=== PATIENT | female | born 1975 | race Caucasian/White ===

== ENCOUNTER 2017-12-22 09:57 | Inpatient (IN) | payer MEDICAID ==
[~2017-12-22] VITALS: Ht 157.5 cm; Wt 63.5 kg
[2017-12-22] MEDS ORDERED: HYD25 PO (10:18)
[2017-12-22] MEDS ORDERED: FLUT16H NASAL (10:18)
[2017-12-22] MEDS ORDERED: FOLI1 PO (10:18)
[2017-12-22] MEDS ORDERED: ALBU8HFA IH (10:18)
[2017-12-22] MEDS ORDERED: LORA10TA7 PO (10:18)
[2017-12-22] MEDS ORDERED: IBUP-2070 PO (10:18)
[2017-12-22] MEDS ORDERED: NITR100C PO (10:18)
[2017-12-22 10:31] LABS: AMPHET/METH SCREEN,URINE NEGATIVE (NEGATIVE); BARBITURATE SCREEN, URINE NEGATIVE (NEGATIVE); BENZODIAZEPINES SCREEN,URINE NEGATIVE (NEGATIVE); CANNABINOID SCREEN,URINE NEGATIVE (NEGATIVE); COCAINE SCREEN,URINE NEGATIVE (NEGATIVE); METHADONE SCREEN, URINE NEGATIVE (NEGATIVE); OPIATE SCREEN,URINE NEGATIVE (NEGATIVE)
[2017-12-22 10:34] LABS: PHENCYCLIDINE SCREEN,URINE NEGATIVE (NEGATIVE)
[2017-12-22 10:39] LABS: BASOPHILS % (AUTO) 1.5 % (0.0-2.0); EOSINOPHILS % (AUTO) 3.1 % (1.0-6.0); HEMATOCRIT 36.2 % (36-46); HEMOGLOBIN 12.5 g/dL (12.0-16.0); LYMPHOCYTES # (AUTO) 1.6 K/uL (1.0-4.8); LYMPHOCYTES % (AUTO) 27.7 % (22.0-44.0); MEAN CORPUSCULAR HEMOGLOBIN 30.9 pg (26.0-34.0); MEAN CORPUSCULAR HGB CONC 34.6 G/dL (31.0-37.0); MEAN CORPUSCULAR VOLUME 89 fL (80-100); MONOCYTES # (AUTO) 0.4 K/uL (0.1-1.0); MONOCYTES % (AUTO) 6.8 % (2.0-9.0); NEUTROPHILS # (AUTO) 3.5 K/uL (1.8-7.7); NEUTROPHILS % (AUTO) 60.9 % (40.0-70.0); PLATELET COUNT (AUTO) 286 K/uL (150-450); RED BLOOD CELL COUNT(AUTO) 4.06 MIL/uL (4.00-5.20); RED CELL DISTRIBUTION WIDTH 13.9 % (11.5-14.5)
[2017-12-22 10:46] LABS: ANION GAP 5 mmol/L (8-16); CALCIUM, TOTAL 8.4 mg/dL (8.8-10.5); CARBON DIOXIDE 29 mmol/L (22-29); CHLORIDE 103 mmol/L (98-107); CREATININE 0.98 mg/dL (0.60-1.30); GLOMERULAR FILTR. RATE CALC > 60 mL/min (>60); GLUCOSE,RANDOM 97 mg/dL (70-110); SODIUM SERUM 137 mmol/L (136-145); UREA NITROGEN, BLOOD 14 mg/dL (7-18)
[2017-12-22 10:52] LABS: ALANINE AMINOTRANSFERASE 32 U/L (12-78); ALBUMIN 3.5 g/dL (3.4-5.0); ALKALINE PHOSPHATASE 80 U/L (46-116); ASPARTATE AMINOTRANSFERASE 23 U/L (15-37); BILIRUBIN,TOTAL 0.3 mg/dL (0.1-1.0); TOTAL PROTEIN, SERUM 7.2 g/dL (6.4-8.2)
[2017-12-22 11:38] LABS: HCG,QUANTITATIVE < 1 mIU/mL (0-6)
[2017-12-22] MEDS ORDERED: LORazepam 1 MG TABLET PO ONE (11:45)
[2017-12-22] MEDS ORDERED: ZOLPIDEM TARTRATE 10 MG TABLET PO PRN (12:00)
[2017-12-22] MEDS ORDERED: HALOPERIDOL 5 MG TABLET PO PRN (12:00)
[2017-12-22 15:21] LABS: APPEARANCE,URINE CLOUDY (CLEAR); BILIRUBIN,URINE NEGATIVE (NEGATIVE); GLUCOSE, URINE (UA) NEGATIVE (NEGATIVE); KETONES,URINE NEGATIVE (NEGATIVE); LEUKOCYTE ESTERASE ,URINE TRACE (NEGATIVE); OCCULT BLOOD,URINE NEGATIVE (NEGATIVE); PH,URINE 6.5 (5.0-8.0); PROTEIN,URINE TRACE (NEGATIVE); UROBILINOGEN,URINE 0.2 mg/dL (<=1.0)
[2017-12-22 16:06] LABS: NITRATE,URINE POSITIVE (NEGATIVE)
[2017-12-22 16:07] LABS: BACTERIA,URINE Many /HPF (None Seen); RBC,URINE 0-2 /HPF (0-2); SQUAMOUS EPITHELIAL CELL,UR Many /LPF (None Seen)
[2017-12-22 17:50] VITALS: BP 132/85
[2017-12-22] MEDS: LORazepam 2 MG TABLET PO PRN (18:58)
[2017-12-22] MEDS ORDERED: PETROLATUM,WHITE 71 GM JELLY TP PRN (19:15)
[2017-12-22] MEDS ORDERED: MAGNESIUM HYDROXIDE SUSPENSION 30 ML UDCUP PO PRN (19:15)
[2017-12-22] MEDS ORDERED: CloNIDine HCL 0.1 MG TABLET PO PRN (19:15)
[2017-12-22] MEDS ORDERED: MAG HYDROX/AL HYDROX/SIMETH ES 30 ML SUSPENSION UDCUP PO PRN (19:15)
[2017-12-22] MEDS ORDERED: BACITRACIN 28.4 GM OINTMENT TP PRN (19:15)
[2017-12-22] MEDS ORDERED: BENZOCAINE/MENTHOL LOZENGE MM PRN (19:15)
[2017-12-22] MEDS ORDERED: LOPERAMIDE HCL 2 MG CAPSULE PO PRN (19:15)
[2017-12-22] MEDS ORDERED: ONDANSETRON HCL 4 MG TABLET PO PRN (19:15)
[2017-12-22] MEDS ORDERED: ACETAMINOPHEN 325 MG TABLET PO PRN (19:15)
[2017-12-22] MEDS: ALBUTEROL SULFATE HFA 90 MCG/PUFF 8 GM INHALER IH PRN (20:57)
[2017-12-22] MEDS: IBUPROFEN 600 MG TABLET PO PRN (20:58)
[2017-12-23 06:54] VITALS: BP 128/86
[2017-12-23] MEDS: ALBUTEROL SULFATE HFA 90 MCG/PUFF 8 GM INHALER IH PRN (08:24)
[2017-12-23 08:41] VITALS: BP 122/68
[2017-12-23] MEDS ORDERED: DOCUSATE SODIUM 100 MG CAPSULE PO SCH (09:00)
[2017-12-23] MEDS ORDERED: OMEPRAZOLE 20 MG CAPSULE PO SCH (09:00)
[2017-12-23] MEDS ORDERED: DOCUSATE SODIUM 100 MG CAPSULE PO PRN (09:00)
[2017-12-23] MEDS: NITROFURANTOIN/NITROFURAN MAC 100 MG CAPSULE [MACROBID] PO SCH ×2 (09:00→17:09)
[2017-12-23 10:36] LABS: CHOL/HDL RATIO 3.2 (3.9-5.7); FREE T4 (FREE THYROXINE) 0.81 ng/dL (0.76-1.46); THYROID STIMULATING HORMONE 4.88 uIU/mL (0.36-3.74)
[2017-12-23] MEDS: IBUPROFEN 600 MG TABLET PO PRN (10:45)
[2017-12-23] MEDS ORDERED: KETOROLAC TROMETHAMINE 30 MG/ML VIAL IM ONE (11:15)
[2017-12-23 16:26] VITALS: BP 112/73
[2017-12-23] MEDS: LORazepam 2 MG TABLET PO PRN (20:25)
[2017-12-24 06:00] VITALS: BP 139/78
[2017-12-24] MEDS: IBUPROFEN 600 MG TABLET PO PRN ×3 (06:03→20:22)
[2017-12-24 08:21] VITALS: BP 116/73
[2017-12-24] MEDS: NITROFURANTOIN/NITROFURAN MAC 100 MG CAPSULE [MACROBID] PO SCH ×2 (09:01→16:23)
[2017-12-24 13:38] VITALS: BP 111/76
[2017-12-24] MEDS: LORATADINE 10 MG TABLET PO PRN (14:38)
[2017-12-24] MEDS: LORazepam 2 MG TABLET PO PRN (14:39)
[2017-12-24 16:30] VITALS: BP 124/75
[2017-12-24 20:22] VITALS: BP 120/67
[2017-12-24] MEDS ORDERED: MIRTAZAPINE 15 MG TABLET PO SCH (21:00)
[2017-12-25 01:27] VITALS: BP 104/63
[2017-12-25 08:28] VITALS: BP 106/64
[2017-12-25] MEDS ORDERED: ARIPiprazole 5 MG TABLET PO SCH (09:00)
[2017-12-25 09:10] VITALS: BP 112/69
[2017-12-25] MEDS: LORATADINE 10 MG TABLET PO PRN (09:12)
[2017-12-25] MEDS: NITROFURANTOIN/NITROFURAN MAC 100 MG CAPSULE [MACROBID] PO SCH ×2 (09:12→16:17)
[2017-12-25] MEDS: IBUPROFEN 600 MG TABLET PO PRN ×2 (09:12→17:38)
[2017-12-25] MEDS: LORazepam 2 MG TABLET PO PRN (16:17)
[2017-12-25 17:41] VITALS: BP 100/62
[2017-12-25] MEDS ORDERED: MIRTAZAPINE 30 MG TABLET PO SCH (21:00)
[2017-12-26 06:36] VITALS: BP 108/76
[2017-12-26] MEDS: ALBUTEROL SULFATE HFA 90 MCG/PUFF 8 GM INHALER IH PRN (08:25)
[2017-12-26] MEDS: ARIPiprazole 10 MG TABLET PO SCH ×2 (08:26→10:40)
[2017-12-26 08:30] VITALS: BP 107/75
[2017-12-26] MEDS: IBUPROFEN 600 MG TABLET PO PRN (08:30)
[2017-12-26] MEDS: NITROFURANTOIN/NITROFURAN MAC 100 MG CAPSULE [MACROBID] PO SCH ×2 (09:00→17:00)
[2017-12-26 09:37] VITALS: BP 107/75
[2017-12-26 17:12] VITALS: BP 124/77
[2017-12-26] MEDS: MIRTAZAPINE 15 MG TABLET PO SCH (21:55)
[2017-12-27 08:29] VITALS: BP 100/80
[2017-12-27] MEDS: NITROFURANTOIN/NITROFURAN MAC 100 MG CAPSULE [MACROBID] PO SCH ×2 (09:00→16:44)
[2017-12-27] MEDS ORDERED: ARIPiprazole 10 MG TABLET PO SCH (09:00)
[2017-12-27] MEDS: LORATADINE 10 MG TABLET PO PRN (09:19)
[2017-12-27 09:49] VITALS: BP 122/81
[2017-12-27] MEDS: IBUPROFEN 600 MG TABLET PO PRN (09:50)
[2017-12-27] MEDS: LamoTRIgine 25 MG TABLET PO SCH (11:04)
[2017-12-27 16:33] VITALS: BP 127/84
[2017-12-27] MEDS: MIRTAZAPINE 15 MG TABLET PO SCH (20:27)
[2017-12-27] MEDS: LORazepam 2 MG TABLET PO PRN (20:39)
[2017-12-28 05:52] VITALS: BP 124/82
[2017-12-28 08:35] VITALS: BP 115/75
[2017-12-28] MEDS: NITROFURANTOIN/NITROFURAN MAC 100 MG CAPSULE [MACROBID] PO SCH (09:00)
[2017-12-28] MEDS: LamoTRIgine 25 MG TABLET PO SCH (09:09)
[2017-12-28] MEDS: IBUPROFEN 600 MG TABLET PO PRN (09:23)
[2017-12-28] MEDS ORDERED: MACR100 PO (09:24)
[2017-12-28] MEDS ORDERED: MIRT15 PO (09:24)
[2017-12-28] MEDS ORDERED: LAMO25 PO (09:24)
== END 2017-12-28 13:25 | disposition home or self-care (01) | DRG 753 ==
LOC: EMS 09:59 → B2S 14:43
PROVIDERS: ADMIT Psychiatry & Neurology Psychiatry; ATTEND Psychiatry & Neurology Psychiatry
DX: F31.4 Bipolar disorder, current episode depressed, severe, without psychotic features (principal); R45.851 Suicidal ideations; E83.51 Hypocalcemia; M32.9 Systemic lupus erythematosus, unspecified; G47.00 Insomnia, unspecified; N39.0 Urinary tract infection, site not specified; E03.9 Hypothyroidism, unspecified; Z79.899 Other long term (current) drug therapy; R45.87 Impulsiveness; Z56.0 Unemployment, unspecified; Z59.0 Homelessness; Z88.1 Allergy status to other antibiotic agents; Z88.8 Allergy status to other drugs, medicaments and biological substances; Z91.018 Allergy to other foods; Z91.048 Other nonmedicinal substance allergy status
CPT/HCPCS: 84439; 84443; 87086; G0480; J1885; J3535